=== PATIENT | male | born 1960 | race Caucasian/White ===

== ENCOUNTER 2021-08-30 09:42 | Day surgery (SDC) | payer MEDICAID, SELFPAY ==
[~2021-08-30 09:42] MED LIST: BUPIVACAINE /PF 0.25% 30 ML VIAL INJ ONE; DIPHENHYDRAMINE INJ 50 MG/ML VIAL ONE; ISOVUE-300 (IOPAMIDOL) 100 ML INFUS..BTL IV ONE; LIDOCAINE 1% 10 MG/ML, 20 ML MDV ONE; NS 1000 ML IV.SOLN IV ONE; methylPREDNISolone ACETATE 40 MG/ML ONE
[2021-08-30] MEDS: MIDAZOLAM HCL 5 MG/5 ML VIAL ONE ×2 (12:53→12:57)
[2021-08-30 16:57] VITALS: BP_SYST 136
== END 2021-08-30 14:20 | disposition home or self-care (01) ==
LOC: SDS 09:42
PROVIDERS: ATTEND Internal Medicine
DX: M51.16 Intervertebral disc disorders with radiculopathy, lumbar region (principal); Z20.822 Contact with and (suspected) exposure to COVID-19
CPT/HCPCS: 36415; 62323; 82962; 87426; J1030; J1200; J2001; J2250; J3490; J7030; Q9967; U0003 ×2; 76000

== ENCOUNTER 2021-10-18 08:33 | Day surgery (SDC) | payer MEDICAID, SELFPAY ==
[~2021-10-18] VITALS: Ht 170.2 cm; Wt 93.0 kg
[2021-10-18] MEDS ORDERED: BUPIVACAINE /PF 0.25% 30 ML VIAL INJ ONE (08:34)
[2021-10-18] MEDS ORDERED: IOHEXOL 300 mgI/mL, 50 mL INFUS..BTL IV ONE (08:34)
[2021-10-18] MEDS ORDERED: DEXAMETHASONE SOD PHOSPHATE 4 MG/ML VIAL IVP ONE (08:34)
[2021-10-18] MEDS ORDERED: LIDOCAINE 2%, 20 ML MDV INJ ONE (08:34)
[2021-10-18] MEDS ORDERED: DIPHENHYDRAMINE INJ 50 MG/ML VIAL ONE (08:47)
[2021-10-18] MEDS ORDERED: MIDAZOLAM HCL 5 MG/5 ML VIAL ONE (08:47)
[2021-10-18 12:36] VITALS: BP_SYST 127
== END 2021-10-18 11:25 | disposition home or self-care (01) ==
LOC: SDS 08:33 → SMU 08:34 → SDS 11:25
PROVIDERS: ATTEND Internal Medicine
DX: M51.16 Intervertebral disc disorders with radiculopathy, lumbar region (principal); M51.9 Unspecified thoracic, thoracolumbar and lumbosacral intervertebral disc disorder; M79.10 Myalgia, unspecified site; G89.4 Chronic pain syndrome; Z20.822 Contact with and (suspected) exposure to COVID-19; Z79.899 Other long term (current) drug therapy
CPT/HCPCS: 36415; 64483; 87426; J1100; J1200; J2001; J2250; J3490; Q9967; U0003; 76000